=== PATIENT | female | born 1970 | race Caucasian/White ===

== ENCOUNTER 2016-07-04 17:29 | Emergency (ER) | payer OTHER | END 2016-07-04 18:41 | disposition left against medical advice (07) | LOC: UCCORT 17:29 | DX: Z53.21 Procedure and treatment not carried out due to patient leaving prior to being seen by health care provider (principal); R51 Headache; R05 Cough ==

== ENCOUNTER 2016-07-05 18:57 | Emergency (ER) | payer OTHER ==
[2016-07-05 20:54] VITALS: BP 143/92
--- NOTE | 2016-07-05 21:24 | UC ---
Respiratory Complaint HPI - HPI Summary HPI Summary: 46 year old female presents complaining of chest and sinus congestion, productive cough with thick yellow mucus, pleuritic chest pain induced with deep breathing, post-nasal drip, and bronchospasm x 4 days. Symptoms have been gradually worsening. Denies fever, sore throat, or GI symptoms. 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 Pt used OTC Nyquil and deslym without relief. - History of Current Complaint Chief Complaint: UCRespiratory Stated Complaint: HEADACHE,COUGH Time Seen by Provider: 07/05/16 21:04 Hx Obtained From: Patient Hx Last Menstrual Period: 06/26/16 ?: No Onset/Duration: Gradual Onset Timing: Constant Severity Initially: Mild Aggravating Factors: Deep Breaths Alleviating Factors: Nothing Associated Signs And Symptoms: Positive: Pleuritic Chest Pain - Risk Factors Pulmonary Embolism Risk Factors: Negative Cardiac Risk Factors: Negative Pseudomonas Risk Factors: Negative Tuberculosis Risk Factors: Negative - Allergies/Home Medications Allergies/Adverse Reactions: Allergies Allergy/AdvReac Type Severity Reaction Status Date / Time No Known Allergies Allergy Verified 07/05/16 20:49 PMH/Surg Hx/FS Hx/Imm Hx Previously Healthy: No Endocrine History Of: Denies: Diabetes, Thyroid Disease, Hyperthyroidism, Hypothyroidism, Dyslipidemia Cardiovascular History Of: Denies: Cardiac Disorders, Hypertension, Pacemaker/ICD, Myocardial Infarction , Congestive Heart Failure, Atrial Fibrillation, Deep Vein Thrombosis, Bleeding Disorders Respiratory History Of: Denies: COPD, Asthma, Bronchitis, Pneumonia, Pulmonary Embolism GI/ History Of: Denies: Gastroesophageal Reflux, Ulcer, Gastrointestinal Bleed, Gall Bladder Disease, Kidney Stones, Diverticulitis, Renal Disease, Urosepsis Neurological History Of: Denies: TIA, CVA, Dementia, Seizures, Migraine Psychological History Of: Denies: Anxiety, Depression, Bipolar Disorder, Schizophrenia, Post Traumatic Stress Disorder - Surgical History Surgical History: Yes Surgery Procedure, Year, and Place: 3 c-sections. collapsed bowel - Social History Occupation: Employed Full-time - Daycare Alcohol Use: None Substance Use Type: None Smoking Status (MU): Never Smoked Tobacco Have You Smoked in the Last Year: No Review of Systems Constitutional: Negative Skin: Negative Eyes: Negative ENT: Nasal Discharge Respiratory: Cough Cardiovascular: Negative Gastrointestinal: Negative Genitourinary: Negative Motor: Negative Neurovascular: Negative Musculoskeletal: Negative Neurological: Negative Psychological: Negative All Other Systems Reviewed And Are Negative: Yes Physical Exam Triage Information Reviewed: Yes Appearance: Well-Appearing Vital Signs: Initial Vital Signs Temp 98.8 F 07/05/16 20:49 Pulse 74 07/05/16 20:49 Resp 18 07/05/16 20:49 BP 143/92 07/05/16 20:49 Pulse Ox 98 07/05/16 20:49 Vital Signs Reviewed: Yes ENT Exam: Normal ENT: Positive: Nasal congestion, Nasal drainage Dental Exam: Normal Neck exam: Normal Neck: Positive: Supple, Nontender, No Lymphadenopathy Respiratory: Positive: Chest non-tender, Lungs clear, Normal breath sounds Cardiovascular Exam: Normal Cardiovascular: Positive: RRR, No Murmur, Pulses Normal Abdominal Exam: Normal Abdomen Description: Positive: Nontender Bowel Sounds: Positive: Present Musculoskeletal Exam: Normal Musculoskeletal: Positive: Strength Intact Neurological Exam: Normal Neurological: Positive: Alert Psychological Exam: Normal Skin Exam: Normal UC Diagnostic Evaluation - Laboratory O2 Sat by Pulse Oximetry: 98 Respiratory Course/Dx - Differential Dx/Diagnosis Provider Diagnoses: URI Discharge - Discharge Plan Condition: Stable Disposition: HOME Patient Education Materials: Upper Respiratory Infection (ED) Referrals: IGNACIO Godinez [Medical Doctor] - If Needed (Call or return if you develop increasing fever, shortness of breath, chest pain, bloody sputum, or otherwise worsen. If you have not improved at all after several days, contact your primary care physician or return here.)
[2016-07-05] MEDS ORDERED: guaiFENesin/CODIEN 100MG-10MG* 5 ML UDC PO ONE (21:33)
[2016-07-05] MEDS ORDERED: guaiFENesin/CODIEN 100MG-10MG* 5 ML UDC ONE (21:56)
== END 2016-07-05 22:04 | disposition home or self-care (01) ==
LOC: UCCORT 18:57
DX: J06.9 Acute upper respiratory infection, unspecified (principal)
CPT/HCPCS: 99212; A9270-GY; G0463